=== PATIENT | female | born 1990 | race Two or more races ===

== ENCOUNTER 2023-07-03 14:37 | Outpatient (CLI) | payer OTHER | END 2023-07-03 17:32 | disposition home or self-care (01) | LOC: PRENATAL 14:37 | PROVIDERS: ATTEND Obstetrics & Gynecology Maternal & Fetal Medicine | DX: O36.80X0 Pregnancy with inconclusive fetal viability, not applicable or unspecified (principal); Z36.9 Encounter for antenatal screening, unspecified; Z36.82 Encounter for antenatal screening for nuchal translucency; O30.90 Multiple gestation, unspecified, unspecified trimester; Z3A.12 12 weeks gestation of pregnancy ==

== ENCOUNTER → 2023-08-26 09:19 | Outpatient (CLI) | payer OTHER | END | disposition home or self-care (01) | LOC: PRENATAL 09:19 | PROVIDERS: ATTEND Obstetrics & Gynecology Maternal & Fetal Medicine | DX: O35.9XX0 Maternal care for (suspected) fetal abnormality and damage, unspecified, not applicable or unspecified (principal); O35.3XX0 Maternal care for (suspected) damage to fetus from viral disease in mother, not applicable or unspecified; O30.90 Multiple gestation, unspecified, unspecified trimester; O60.00 Preterm labor without delivery, unspecified trimester; O44.00 Complete placenta previa NOS or without hemorrhage, unspecified trimester; Z3A.20 20 weeks gestation of pregnancy ==

== ENCOUNTER 2023-09-25 10:37 | Outpatient (CLI) | payer OTHER | END 2023-09-25 10:38 | disposition home or self-care (01) | LOC: PRENATAL 10:37 | PROVIDERS: ATTEND Obstetrics & Gynecology Maternal & Fetal Medicine | DX: O26.849 Uterine size-date discrepancy, unspecified trimester (principal); O30.90 Multiple gestation, unspecified, unspecified trimester; Z3A.24 24 weeks gestation of pregnancy ==

== ENCOUNTER → 2023-10-20 | Outpatient (CLI) | payer OTHER | END | disposition home or self-care (01) | LOC: PRENATAL 08:34 | PROVIDERS: ATTEND Obstetrics & Gynecology Maternal & Fetal Medicine | DX: O26.849 Uterine size-date discrepancy, unspecified trimester (principal); O30.90 Multiple gestation, unspecified, unspecified trimester; O26.879 Cervical shortening, unspecified trimester; O99.019 Anemia complicating pregnancy, unspecified trimester; Z3A.28 28 weeks gestation of pregnancy ==

== ENCOUNTER 2023-11-17 14:26 | Outpatient (CLI) | payer OTHER | END 2023-11-17 14:27 | disposition home or self-care (01) | LOC: PRENATAL 14:26 | PROVIDERS: ATTEND Obstetrics & Gynecology Maternal & Fetal Medicine | DX: O26.849 Uterine size-date discrepancy, unspecified trimester (principal); O36.8199 Decreased fetal movements, unspecified trimester, other fetus; O99.019 Anemia complicating pregnancy, unspecified trimester; Z3A.32 32 weeks gestation of pregnancy ==

== ENCOUNTER 2023-11-25 07:25 | Inpatient (IN) | payer OTHER ==
[~2023-11-25] VITALS: Ht 165.1 cm; Wt 1.8 kg
[2023-11-25] MEDS ORDERED: BETAMETHASONE ACETATE,SOD PHOS 30 MG/5 ML ML ONE (07:38)
[2023-11-25 07:56] LABS: HEMATOCRIT 27.5 % (36.0-45.00); MEAN CELL VOLUME 77.9 fL (80.00-100.00); MEAN CORPUSCULAR HEMOGLOBIN 25.4 pg (27.00-32.0); MEAN CORPUSCULAR HGB CONC 32.7 g/dl (32.0-36.0); PLATELET COUNT 254 K/uL (150-450); RED BLOOD COUNT 3.54 M/uL (4.00-6.00); RED CELL DISTRIBUTION WIDTH 15.3 % (11.5-14.5)
[2023-11-25 08:18] LABS: INR < 0.93; PARTIAL THROMBOPLASTIN TIME 25.9 SECONDS (22.0-34.0); PROTHROMBIN TIME 9.7 SECONDS (9.0-11.5)
[2023-11-25 08:23] LABS: ALBUMIN 2.5 gm/dL (3.4-5.0); BILIRUBIN TOTAL 0.43 mg/dL (0.3-1.2); CALCIUM 8.7 mg/dL (8.5-10.1); CREATININE SERUM 0.6 mg/dL (0.55-1.02); GFR 115.85; GLOBULINA 3.9 G/DL (2.4-3.5); POTASSIUM 3.82 mEq/L (3.5-5.1); TOTAL PROTEIN 6.4 gm/dL (6.4-8.2)
[2023-11-25] MEDS ORDERED: BETAMETHASONE ACETATE,SOD PHOS 30 MG/5 ML ML IM ONE (08:30)
[2023-11-25] MEDS ORDERED: OXYTOCIN 1,000 ML IV SCH (09:45)
[2023-11-25] MEDS ORDERED: KETOROLAC TROMETHAMINE 30 MG VIAL IV PRN (09:45)
[2023-11-25] MEDS ORDERED: MEPERIDINE HCL/PF 50 MG/ML VIAL IV PRN (10:00)
[2023-11-25] MEDS ORDERED: PROMETHAZINE HCL 25 MG/ML AMPUL IV PRN (10:00)
[2023-11-25] MEDS ORDERED: OxyCODONE HCL/APAP UD (PERCOCET) PO PRN (10:00)
[2023-11-25] MEDS ORDERED: CEFAZOLIN SODIUM 1,000 MG VIAL IV SCH ×2 (10:15→17:00)
[2023-11-25 10:27] LABS: ABG PH 7.061 (7.35-7.45)
[2023-11-25 10:28] LABS: ABG PH 7.178 (7.35-7.45); ABG PO2 31.6 mmHg (80-100); ABG pCO2 56.2 mmHg (35-45); ABG pCO2 70.6 mmHg (35-45); BASE EXCESS -11.9 mmol/l; BICARBONATE 19.6 mmol/l (23-25); SaO2 33.7 %; Tco2 21 mmol/l; o2 21 %
[2023-11-25 10:29] LABS: ABG PO2 22.8 mmHg (80-100); BASE EXCESS -8.6 mmol/l; BICARBONATE 20.4 mmol/l (23-25); SaO2 24.5 %; Tco2 22.1 mmol/l; o2 21 %
[2023-11-25] MEDS ORDERED: OXYTOCIN 10 UNITS/ML VIAL ONE (12:00)
[2023-11-25 12:58] LABS: HEMATOCRIT 25.6 % (36.0-45.00); MEAN CELL VOLUME 77.3 fL (80.00-100.00); MEAN CORPUSCULAR HGB CONC 32.8 g/dl (32.0-36.0); PLATELET COUNT 262 K/uL (150-450); RED BLOOD COUNT 3.31 M/uL (4.00-6.00); RED CELL DISTRIBUTION WIDTH 15.5 % (11.5-14.5)
[2023-11-25 12:59] LABS: HEMOGLOBIN 8.4 g/dL (12.0-15.00); MEAN CORPUSCULAR HEMOGLOBIN 25.3 pg (27.00-32.0)
[2023-11-25] MEDS ORDERED: OXYTOCIN 10 UNITS/ML VIAL IV ONE (15:15)
[2023-11-25] MEDS ORDERED: ERYTHROMYCIN BASE 1 GM TUBE OP ONE (15:15)
[2023-11-26] MEDS ORDERED: IRON/V.C/V.B12/FOLIC A/VIT. E 1 CAPL CAPLET PO SCH (09:00)
[2023-11-26] MEDS ORDERED: DOCUSATE SODIUM 100MG CAP PO SCH (09:00)
[2023-11-26] MEDS ORDERED: SIMETHICONE 125 MG CAPSULE PO SCH (09:00)
[2023-11-26] MEDS ORDERED: IBUprofen 800 MG TABLET PO PRN (17:00)
== END 2023-11-28 17:11 | disposition home or self-care (01) | DRG 786 ==
LOC: OB/GYN 07:25 → LDR 07:25 → O/R 07:25 → OB/GYN 10:09
PROVIDERS: ADMIT Student in an Organized Health Care Education/Training Program; ATTEND Student in an Organized Health Care Education/Training Program
PROC: 4A1HXCZ Monitoring of Products of Conception, Cardiac Rate, External Approach (ICD-10-PCS; 2023-11-25)
PROC: 10D00Z1 Extraction of Products of Conception, Low, Open Approach (ICD-10-PCS; principal; 2023-11-25 10:15)
DX: O32.8XX2 Maternal care for other malpresentation of fetus, fetus 2 (principal); O60.14X2 Preterm labor third trimester with preterm delivery third trimester, fetus 2; O30.043 Twin pregnancy, dichorionic/diamniotic, third trimester; Z3A.33 33 weeks gestation of pregnancy; Z37.2 Twins, both liveborn